=== PATIENT | female | born 1945 | race Caucasian/White ===

== ENCOUNTER 2016-09-05 10:00 | Outpatient (RCR) | payer MEDICARE, OTHER | END 2016-09-06 | disposition home or self-care (01) | LOC: PULM 10:00 | PROVIDERS: ATTEND Internal Medicine Critical Care Medicine | DX: J44.9 Chronic obstructive pulmonary disease, unspecified (principal) ==

== ENCOUNTER 2018-10-21 10:30 | Outpatient (RCR) | payer MEDICARE, OTHER ==
[~2018-10-21] VITALS: Ht 161.3 cm; Wt 63.5 kg
[2018-10-21 10:48] VITALS: BP 120/60
[2018-10-29 15:00] VITALS: BP 120/88
[2018-10-29 16:00] VITALS: BP 120/60
[2018-10-31 15:00] VITALS: BP 102/80
[2018-10-31 16:00] VITALS: BP 116/60
[2018-11-07 14:55] VITALS: BP 150/90
[2018-11-07] MEDS ORDERED: PANT40TA3 (16:09)
[2018-11-07] MEDS ORDERED: PROAIR (16:09)
[2018-11-07] MEDS ORDERED: ATOR10TA66 (16:09)
[2018-11-07] MEDS ORDERED: DICY10CA12 (16:09)
[2018-11-07] MEDS ORDERED: ALPR0.254 (16:09)
[2018-11-07] MEDS ORDERED: BUPR300T51 (16:09)
[2018-11-07] MEDS ORDERED: TRAZ-190 (16:09)
[2018-11-07] MEDS ORDERED: GBPN600T (16:09)
[2018-12-05 15:10] VITALS: BP 130/60
[2018-12-05 16:00] VITALS: BP 110/70
[2019-01-16 14:40] VITALS: BP 128/60
[2019-01-16 15:10] VITALS: BP 115/60
[2019-01-30 14:18] VITALS: BP 108/80
[2019-01-30 15:00] VITALS: BP 115/60
[2019-02-04 14:35] VITALS: BP 108/60
[2019-02-04 15:25] VITALS: BP 112/70
== END 2019-01-19 | disposition home or self-care (01) ==
LOC: PULM 10:30
PROVIDERS: ATTEND Internal Medicine Critical Care Medicine
DX: J44.9 Chronic obstructive pulmonary disease, unspecified (principal)

== ENCOUNTER 2018-11-07 15:23 | Emergency (ER) | payer MEDICARE, OTHER ==
[~2018-11-07] VITALS: Ht 152.4 cm; Wt 61.2 kg
[2018-11-07 15:54] LABS: BASOPHILS # (AUTO) 0.1 10^3/uL (0.0-0.1); BASOPHILS % (AUTO) 0 % (0-10); EOSINOPHILS # (AUTO) 0.1 10^3/uL (0.0-0.3); EOSINOPHILS % (AUTO) 1 % (0-10); HEMATOCRIT 43 % (35-52); HEMOGLOBIN 14.2 G/DL (11.5-16.0); LYMPHOCYTES % (AUTO) 21 % (12-44); MEAN CORPUSCULAR HEMOGLOBIN 29 PG (25-34); MEAN CORPUSCULAR HGB CONC 33 G/DL (32-36); MEAN CORPUSCULAR VOLUME 88 FL (80-99); MEAN PLATELET VOLUME 10.7 FL (7.4-10.4); MONOCYTES # (AUTO) 1.2 X 10^3 (0.0-1.0); MONOCYTES % (AUTO) 9 % (0-12); NEUTROPHILS # (AUTO) 9.6 X 10^3 (1.8-7.8); NEUTROPHILS % (AUTO) 69 % (42-75); PLATELET COUNT 298 10^3/uL (130-400); RED CELL DISTRIBUTION WIDTH 15.2 % (10.0-14.5); WHITE BLOOD COUNT 13.9 10^3/uL (4.3-11.0)
[2018-11-07] MEDS ORDERED: ASPIRIN 81 MG CHEW (CHILDREN'S ASA) PO ONE (16:00)
[2018-11-07 16:06] LABS: ALANINE AMINOTRANSFERASE 17 U/L (0-55); ALBUMIN 4.5 GM/DL (3.2-4.5); ALKALINE PHOSPHATASE 70 U/L (40-136); BILIRUBIN,TOTAL 0.3 MG/DL (0.1-1.0); BUN/CREATININE RATIO 30; CALCIUM 10.9 MG/DL (8.5-10.1); CARBON DIOXIDE 22 MMOL/L (21-32); CHLORIDE 107 MMOL/L (98-107); CREATININE SERUM 1.05 MG/DL (0.60-1.30); GFR ESTIMATED 52; GLUCOSE 105 MG/DL (70-105); MAGNESIUM 1.9 MG/DL (1.8-2.4); POTASSIUM 4.3 MMOL/L (3.6-5.0); SODIUM 142 MMOL/L (135-145); TOTAL PROTEIN 7.5 GM/DL (6.4-8.2)
[2018-11-07] MEDS ORDERED: BUPR300T51 (16:09)
[2018-11-07] MEDS ORDERED: DICY10CA12 (16:09)
[2018-11-07] MEDS ORDERED: ATOR10TA66 (16:09)
[2018-11-07] MEDS ORDERED: PROAIR (16:09)
[2018-11-07] MEDS ORDERED: GBPN600T (16:09)
[2018-11-07] MEDS ORDERED: PANT40TA3 (16:09)
[2018-11-07] MEDS ORDERED: ALPR0.254 (16:09)
[2018-11-07] MEDS ORDERED: TRAZ-190 (16:09)
[2018-11-07 16:14] LABS: INR 0.9 (0.8-1.4); PROTHROMBIN TIME PATIENT 12.2 SEC (12.2-14.7)
--- NOTE | 2018-11-07 16:40 | Diagnostic Imaging Report ---
INDICATION: Chest pain. COMPARISON: None. FINDINGS: Single frontal view of the chest demonstrates normal heart size and pulmonary vascularity. The lungs are well aerated and clear. No large pleural effusion or pneumothorax is seen. The visualized osseous structures show no acute abnormalities. IMPRESSION: 1. No acute cardiopulmonary process. Dictated by: Dictated on workstation # [id number]
--- NOTE | 2018-11-07 16:50 | ED Chest Pain ---
General Chief Complaint: Chest Pain Stated Complaint: CHEST PAIN,HYPERTENSION Nursing Triage Note: TO ED PER W/C FROM PULMONARY REHAB VOICED TO STAFF IN REHAB THAT SHE WAS H AVING CHEST PAIN. C/O CHEST PAIN ON ADMIT ANXIOUS. ON ADMIT. Nursing Sepsis Screen: No Definite Risk Source: patient Exam Limitations: no limitations History of Present Illness Date Seen by Provider: November 07, 2018 Time Seen by Provider: 15:40 Allergies and Home Medications Allergies Coded Allergies: latex (Verified Allergy, Unknown, 11/07/18) morphine (Verified Allergy, Unknown, 11/07/18) Past Xuigcec-Xwnrbp-Mqmgnp Hx Patient Social History Alcohol Use: Denies Use Recreational Drug Use: No Smoking Status: Former Smoker Type Used: Electronic/Vapor Recent Foreign Travel: No Contact w/Someone Who Travel: No Recent Infectious Disease Expo: No Past Medical History Surgeries: Yes Abdominal Respiratory: Yes Asthma, COPD Cardiac: Yes Hypertension Genitourinary: Yes Gastrointestinal: Yes Gastroesophageal Reflux Musculoskeletal: No Endocrine: No Cancer: No Physical Exam Vital Signs Vital Signs - First Documented Capillary Refill : Less Than 3 Seconds Height, Weight, BMI Height: 5'3.50" Weight: 135lbs. 2.0oz. [id number]; 23.7 BMI Method:Stated Progress/Results/Core Measures Results/Orders Lab Results Laboratory Tests Test 11/07/18 15:30 11/07/18 17:35 Range/Units White Blood Count 13.9 H 4.3-11.0 10^3/uL Red Blood Count 4.84 4.35-5.85 10^6/uL Hemoglobin 14.2 11.5-16.0 G/DL Hematocrit 43 35-52 % Mean Corpuscular Volume 88 80-99 FL Mean Corpuscular Hemoglobin 29 25-34 PG Mean Corpuscular Hemoglobin Concent 33 32-36 G/DL Red Cell Distribution Width 15.2 H 10.0-14.5 % Platelet Count 298 130-400 10^3/uL Mean Platelet Volume 10.7 H 7.4-10.4 FL Neutrophils (%) (Auto) 69 42-75 % Lymphocytes (%) (Auto) 21 12-44 % Monocytes (%) (Auto) 9 0-12 % Eosinophils (%) (Auto) 1 0-10 % Basophils (%) (Auto) 0 0-10 % Neutrophils # (Auto) 9.6 H 1.8-7.8 X 10^3 Lymphocytes # (Auto) 3.0 1.0-4.0 X 10^3 Monocytes # (Auto) 1.2 H 0.0-1.0 X 10^3 Eosinophils # (Auto) 0.1 0.0-0.3 10^3/uL Basophils # (Auto) 0.1 0.0-0.1 10^3/uL Prothrombin Time 12.2 12.2-14.7 SEC INR Comment 0.9 0.8-1.4 Activated Partial Thromboplast Time 27 24-35 SEC Sodium Level 142 135-145 MMOL/L Potassium Level 4.3 3.6-5.0 MMOL/L Chloride Level 107 98-107 MMOL/L Carbon Dioxide Level 22 21-32 MMOL/L Anion Gap 13 5-14 MMOL/L Blood Urea Nitrogen 31 H 7-18 MG/DL Creatinine 1.05 0.60-1.30 MG/DL Estimat Glomerular Filtration Rate 52 BUN/Creatinine Ratio 30 Glucose Level 105 70-105 MG/DL Calcium Level 10.9 H 8.5-10.1 MG/DL Corrected Calcium 10.5 H 8.5-10.1 MG/DL Magnesium Level 1.9 1.8-2.4 MG/DL Total Bilirubin 0.3 0.1-1.0 MG/DL Aspartate Amino Transf (AST/SGOT) 18 5-34 U/L Alanine Aminotransferase (ALT/SGPT) 17 0-55 U/L Alkaline Phosphatase 70 40-136 U/L Myoglobin 43.2 10.0-92.0 NG/ML Troponin I < 0.028 < 0.028 <0.028 NG/ML Total Protein 7.5 6.4-8.2 GM/DL Albumin 4.5 3.2-4.5 GM/DL My Orders Orders - BERNOT,RADHA Cbc With Automated Diff (11/07/18 15:46) Magnesium (11/07/18 15:46) Chest 1 View, Ap/Pa Only (11/07/18 15:46) Ekg Tracing (11/07/18 15:46) Cardiac Profile 1 (11/07/18 15:46) Comprehensive Metabolic Panel (11/07/18 15:46) Myoglobin Serum (11/07/18 15:46) Protime With Inr (11/07/18 15:46) Partial Thromboplastin Time (11/07/18 15:46) O2 (11/07/18 15:46) Monitor-Rhythm Ecg Trace Only (11/07/18 15:46) Lipid Panel (11/08/18 06:00) Ed Iv/Invasive Line Start (11/07/18 15:46) Aspirin Chewable Tablet (Baby Aspirin Ch (11/07/18 16:00) Clonidine Tablet (Catapres Tablet) (11/07/18 17:15) Troponin I (11/07/18 17:25) Medications Given in ED Current Medications Medications Dose Ordered Sig/Melissa Route Start Time Stop Time Status Last Admin Dose Admin Aspirin 324 mg ONCE ONCE PO 11/07/18 16:00 11/07/18 16:01 DC 11/07/18 15:59 324 MG Clonidine HCl 0.2 mg ONCE ONCE PO 11/07/18 17:15 11/07/18 17:16 DC 11/07/18 17:14 0.2 MG Vital Signs/I&O 11/07/18 11/07/18 11/07/18 15:26 15:26 17:50 Temp 97.8 Pulse 94 82 Resp 18 18 B/P (MAP) 177/117 (137) 187/99 (128) Pulse Ox 98 98 O2 Delivery Nasal Cannula Nasal Cannula Nasal Cannula O2 Flow Rate 3.00 3.00 3.00 Blood Pressure Mean: 137 Departure Impression Primary Impression: Chest pain Additional Impressions: Labile hypertension Anxiety Disposition: 01 HOME, SELF-CARE Condition: Stable/Unchanged Departure-Patient Inst. Decision time for Depature: 18:32 Referrals: AIDAN KUMAR MD (PCP/Family) Primary Care Physician Patient Instructions: Chest Pain That Is Not Caused by the Heart (DC) Add. Discharge Instructions: Follow-up with your primary care provider within 1 week for recheck. Return back to the emergency room for worsening symptoms or concerns as needed. All discharge instructions reviewed with patient and/or family. Voiced understanding. RADHA ELIAS November 07, 2018 16:50
[2018-11-07] MEDS ORDERED: cloNIDine 0.2 MG PATCH (CATAPRES TTS) TDSY TD ONE (17:00)
[2018-11-07] MEDS ORDERED: cloNIDine 0.2 MG (CATAPRES) TAB PO ONE (17:15)
--- NOTE | 2018-11-07 17:35 | NUR ---
BLOOD DRAWN BY LAB
[2018-11-07 17:50] VITALS: BP 187/99
[2018-11-07 18:38] VITALS: BP 143/89
== END 2018-11-07 18:38 | disposition home or self-care (01) ==
LOC: EDUNIT# 15:23 → ER 15:24
DX: R07.9 Chest pain, unspecified (principal); I10 Essential (primary) hypertension; F41.9 Anxiety disorder, unspecified; J44.9 Chronic obstructive pulmonary disease, unspecified; K21.9 Gastro-esophageal reflux disease without esophagitis; Z91.040 Latex allergy status; Z88.5 Allergy status to narcotic agent; Z87.891 Personal history of nicotine dependence
CPT/HCPCS: 36415; 71045; 80053; 83735; 83874; 84484; 85025; 85610; 85730; 93005; 93041

== ENCOUNTER 2019-01-28 16:00 | Outpatient (RCR) | payer MEDICARE, OTHER ==
[2019-01-28 15:00] VITALS: BP 120/60
[2019-01-28 15:58] VITALS: BP 120/50
[~2019-01-28 16:00] MED LIST: ALPR0.254; ATOR10TA66; BUPR300T51; DICY10CA12; GBPN600T; PANT40TA3; PROAIR; TRAZ-190
[2019-02-13 14:30] VITALS: BP 115/60
[2019-02-13 15:45] VITALS: BP 115/60
[2019-02-20 14:30] VITALS: BP 93/40
[2019-02-20 16:00] VITALS: BP 93/60
[2019-02-25 14:30] VITALS: BP 80/50
[2019-02-25 15:20] VITALS: BP 98/60
[2019-02-27 14:30] VITALS: BP 102/56
[2019-02-27 15:45] VITALS: BP 130/80
[2019-03-04 14:30] VITALS: BP 123/70
[2019-03-04 15:30] VITALS: BP 112/70
[2019-03-11 14:30] VITALS: BP 85/60
[2019-03-11 15:29] VITALS: BP 121/53
[2019-03-13 14:20] VITALS: BP 140/76
[2019-03-13 15:26] VITALS: BP 131/60
[2019-03-18 14:25] VITALS: BP 140/60
[2019-03-18 15:02] VITALS: BP 140/60
[2019-03-20 14:30] VITALS: BP 130/87
[2019-03-20 15:40] VITALS: BP 130/60
[2019-03-25 14:22] VITALS: BP 136/66
[2019-03-25 15:32] VITALS: BP 120/80
[2019-04-08 14:30] VITALS: BP 110/60
[2019-04-08 15:51] VITALS: BP 108/70
[2019-04-10 14:30] VITALS: BP 110/84
[2019-04-10 15:58] VITALS: BP 110/62
--- NOTE | 2019-04-15 16:38 | NUR ---
Patient was scheduled at 1500 for Pulmonary rehab final evaluation. Patient arrived at 1500 and I asked her to sit in the office and wait and I would be with her shortly. Key Geronimo was with me and she was trying to help me with an issue regarding the [employer] system and we were on the computer. At 1515 I went in to perform Anahi's final evaluation and when I entered the office she was angry and started complaining that she had been made to wait and unnecessarily and her wait was unacceptable. I appologized for her wait and explained that I did not know Key would be showing up at that time and had to speak with her. Anahi remained angry and agitated stating she didn't have time to wait, she had places she needed to be. I asked her if she needed to go ahead and leave and she said "no let's just get this done". She was also very upset about having to fill out a psychosocial evaluation that is required for all patients to fill out both pre and post program. It was with some other evaluations that we had sent home for her to fill out rosa to coming in today. She performed the spirometry and 6mw without issue. Her total time spent today was about 30 minutes. She was not acting like herself today but seemed highly agitated and angry.
== END 2019-04-28 | disposition home or self-care (01) ==
LOC: PULM 16:00
PROVIDERS: ATTEND Internal Medicine Critical Care Medicine
DX: J44.9 Chronic obstructive pulmonary disease, unspecified (principal)

== ENCOUNTER 2022-04-05 11:29 | Emergency (ER) | payer MEDICARE, OTHER ==
[~2022-04-05] VITALS: Ht 162 cm; Wt 56.6 kg
[~2022-04-05 11:29] MED LIST changes: +ALPR.25T; -ALPR0.254; -BUPR300T51; +BUPR300T98; -PANT40TA3; +PANT40TA52; -TRAZ-190; +TRAZ-227
[2022-04-05 11:53] LABS: BASOPHILS % (AUTO) 0 % (0-10); EOSINOPHILS % (AUTO) 0 % (0-10); HEMATOCRIT 46 % (35-52); HEMOGLOBIN 15.9 g/dL (11.5-16.0); LYMPHOCYTES # (AUTO) 1.7 10^3/uL (1.0-4.0); LYMPHOCYTES % (AUTO) 14 % (12-44); MEAN CORPUSCULAR HEMOGLOBIN 32 pg (25-34); MEAN CORPUSCULAR HGB CONC 34 g/dL (32-36); MEAN CORPUSCULAR VOLUME 92 fL (80-99); MEAN PLATELET VOLUME 10.5 fL (9.0-12.2); MONOCYTES # (AUTO) 1.1 10^3/uL (0.0-1.0); MONOCYTES % (AUTO) 9 % (0-12); NEUTROPHILS # (AUTO) 8.8 10^3/uL (1.8-7.8); NEUTROPHILS % (AUTO) 75 % (42-75); PLATELET COUNT 293 10^3/uL (130-400); WHITE BLOOD COUNT 11.6 10^3/uL (4.3-11.0)
[2022-04-05 11:56] LABS: SMEAR SCAN COMMENT N
[2022-04-05 11:58] LABS: CLARITY,URINE CLEAR; COLOR,URINE YELLOW; GLUCOSE, URINE (UA) NEGATIVE (NEGATIVE); KETONES,URINE 2+ (NEGATIVE); LEUKOCYTE ESTERASE ,URINE NEGATIVE (NEGATIVE); NITRITE,URINE NEGATIVE (NEGATIVE); PROTEIN,URINE TRACE (NEGATIVE)
[2022-04-05 12:22] LABS: ALBUMIN 4.1 GM/DL (3.2-4.5)
[2022-04-05 12:22] LABS: BILIRUBIN,URINE NEGATIVE (NEGATIVE)
[2022-04-05 12:23] LABS: CALCIUM 9.4 MG/DL (8.5-10.1)
[2022-04-05 12:25] LABS: TOTAL PROTEIN 6.8 GM/DL (6.4-8.2)
[2022-04-05 12:26] LABS: BACTERIA,URINE TRACE /HPF; RBC,URINE RARE /HPF; WBC,URINE RARE /HPF
[2022-04-05 12:26] LABS: BILIRUBIN,TOTAL 0.8 MG/DL (0.1-1.0)
[2022-04-05 12:28] LABS: CREATININE SERUM 0.79 MG/DL (0.60-1.30)
[2022-04-05] MEDS ORDERED: LACTATED RINGERS 1,000 ML IV ONE (14:15)
[2022-04-05] MEDS ORDERED: fentaNYL INJ 100 MCG/2 ML AMP IVP ONE (14:15)
[2022-04-05] MEDS ORDERED: ONDANSETRON 4 MG/2 ML (SDV) Z0FRAN IVP ONE (14:15)
[2022-04-05] MEDS ORDERED: IOHEXOL 350 MG/ML 100 ML (OMNIPAQUE 350) VIAL IV ONE (14:30)
[2022-04-05] MEDS ORDERED: HOLD METFORMIN - RECEIVED CONTRAST 20 ML VIAL IV SCH (14:30)
[2022-04-05] MEDS ORDERED: NS 100 ML (IVPB) BAG IV ONE (14:30)
--- NOTE | 2022-04-05 14:59 | Diagnostic Imaging Report ---
PROCEDURE: CT abdomen and pelvis with contrast. TECHNIQUE: Multiple contiguous axial images were obtained through the abdomen and pelvis after administration of intravenous contrast. Auto Exposure Controls were utilized during the CT exam to meet ALARA standards for radiation dose reduction. All CT scans use one or more of the following dose optimizing techniques: automated exposure control, MA and/or KvP adjustment based on patient size and exam type or iterative reconstruction. INDICATION: Abdominal pain. Vomiting. COMPARISON: None FINDINGS: Included portions of the lung bases are clear. Small hiatal hernia is noted. CT ABDOMEN: Patient is status post previous partial right hemicolectomy. Normal appendix is identified. Small bowel loops are nondistended. Kidneys, adrenal glands, spleen, pancreas, and liver have a normal CT appearance. There is no loculated fluid collection, free fluid or free air within the abdomen. No abnormal mesenteric or retroperitoneal adenopathy is seen. There is advanced diffuse calcified aortic arterial atherosclerosis. Osseous structures show no acute abnormalities. CT PELVIS: Urinary bladder is unopacified. No calculi are seen within urinary bladder. There is no loculated fluid collection, free fluid or free air. No abnormal lymph nodes are seen. Osseous structures show no acute abnormalities. IMPRESSION: 1. No acute abnormalities seen within the abdomen or pelvis. 2. Other nonemergent findings as detailed above. Dictated by: Dictated on workstation # [id number]
[2022-04-05 15:00] LABS: MAGNESIUM 1.8 MG/DL (1.6-2.4)
--- NOTE | 2022-04-05 15:10 | ED Abdominal Pain ---
General Chief Complaint: Abdominal/GI Problems Stated Complaint: WEAKNESS/NAUSEA Nursing Triage Note: pt presents to ed with complaints of abdominal pain, n/v x 1 week, constipation and chills. Source of Information: Patient Exam Limitations: No Limitations History of Present Illness Date Seen by Provider: Apr 05, 2022 Time Seen by Provider: 11:31 Initial Comments This 76-year-old woman presents today with primary complaint of nausea and vomiting with some associated abdominal discomfort. Recent problem started about 10 days ago with a URI. She presented to the ER in [place] where she was prescribed nebulizers and azithromycin. Her cough has since improved. However, she developed abdominal discomfort and vomiting starting yesterday. She has not been able to take her medications. She has not yet been tested for COVID. She additionally reports having a fall over this weekend and injuring her tailbone. This seems to be a reinjury of prior tailbone injury from many years ago. She had been prescribed tramadol and prednisone by another provider for this injury. Allergies and Home Medications Allergies Coded Allergies: erythromycin base (Verified Allergy, Unknown, 04/05/22) latex (Verified Allergy, Unknown, 11/07/18) morphine (Verified Allergy, Unknown, 11/07/18) Patient Home Medication List Home Medication List Reviewed: Yes ALPRAZolam (Xanax Tablet) 0.25 Mg Tablet, (Reported) Entered as Reported by: JUAN CARLOS BUTCHER on 11/07/18 1609 Atorvastatin Calcium (Atorvastatin Calcium) 10 Mg Tablet, (Reported) Entered as Reported by: JUAN CARLOS BUTCHER on 11/07/18 160 Bupropion HCl (Bupropion Xl) 300 Mg Tab.er.24h, (Reported) Entered as Reported by: JUAN CARLOS BUTCHER on 11/07/18 160 Dicyclomine HCl (Dicyclomine HCl) 10 Mg Capsule, (Reported) Entered as Reported by: JUAN CARLOS BUTCHER on 11/07/18 1609 Gabapentin (Gabapentin) 600 Mg Tablet, (Reported) Entered as Reported by: JUAN CARLOS BUTCHER on 11/07/18 160 Ondansetron (Ondansetron Odt) 4 Mg Tab.rapdis, 4 MG SL Q4H PRN for NAUSEA/VOMITING Prescribed by: CRISTELA BYRD on 04/05/22 1620 Pantoprazole Sodium (Pantoprazole Sodium) 40 Mg Tablet., (Reported) Entered as Reported by: JUAN CARLOS BUTCHER on 11/07/18 160 Tramadol HCl (Ultram) 50 Mg Tablet, 50 MG PO Q6H PRN for PAIN-BREAKTHROUGH Prescribed by: CRISTELA BYRD on 04/05/22 1620 Trazodone HCl (Trazodone HCl) 100 Mg Tablet, (Reported) Entered as Reported by: JUAN CARLOS BUTCHER on 11/07/18 160 [Proair] , (Reported) Entered as Reported by: JUAN CARLOS BUTCHER on 11/07/181608 Review of Systems Review of Systems Constitutional: no symptoms reported EENTM: No Symptoms Reported Respiratory: No Symptoms Reported Cardiovascular: No Symptoms Reported Gastrointestinal: See HPI Genitourinary: No Symptoms Reported Musculoskeletal: see HPI Skin: no symptoms reported Psychiatric/Neurological: No Symptoms Reported Endocrine: No Symptoms Reported Past Wairdrd-Drcoot-Wqanvf Hx Patient Social History Tobacco Use?: Yes Tobacco type used: Cigarettes Smoking Status: Current Everyday Smoker Substance use?: No Alcohol Use?: No Pt feels they are or have been: No Immunizations Up To Date First/Initial COVID19 Vaccinat: yes Second COVID19 Vaccination Jacob: yes Past Medical History Surgery/Hospitalization HX: pmh: neuropathy, breast ca, diverticulitis, anxiety, copd, high chol Surgeries: Yes Abdominal (Partial colectomy with colostomy and reversal), Breast (Mastectomy and breast implant removal, teratoma resection), Orthopedic (Neck, tibia f racture) Respiratory: Yes Asthma, COPD Cardiac: Yes High Cholesterol, Hypertension Neurological: Yes Neuropathy Genitourinary: Yes Gastrointestinal: Yes Gastroesophageal Reflux, Diverticulosis Musculoskeletal: No Endocrine: No Cancer: Yes Breast Did You Recieve Any Treatments: Yes What Type of Treatment Did You: Surgical Intervention Physical Exam Vital Signs Vital Signs - First Documented 04/05/22 11:32 Temp 37.2 Pulse 78 Resp 18 B/P (MAP) 149/103 (118) Pulse Ox 97 O2 Delivery Nasal Cannula O2 Flow Rate 2.00 Capillary Refill : Less Than 3 Seconds Height/Weight/BMI Height: 5'3.50" Weight: 144lbs. 2.0oz. 61.511475lv; 21.00 BMI Method:Stated General Appearance: WD/WN, mild distress, thin HEENT: PERRL/EOMI, normal ENT inspection Neck: normal inspection Respiratory: lungs clear, normal breath sounds, no respiratory distress Cardiovascular: regular rate, rhythm, no edema, no murmur Gastrointestinal: normal bowel sounds, soft, tenderness (Minimal, generalized) Extremities: normal inspection, no pedal edema Back: normal inspection, other (Tenderness over the coccyx) Neurologic/Psychiatric: import clerk II-XII nml as tested, no motor/sensory deficits, alert, normal mood/affect, oriented x 3 Skin: normal color, warm/dry Progress/Results/Core Measures Results/Orders Lab Results Laboratory Tests Test 04/05/22 11:35 04/05/22 11:50 04/05/22 12:05 04/05/22 14:22 Range/Units White Blood Count 11.6 H 4.3-11.0 10^3/uL Red Blood Count 5.02 3.80-5.11 10^6/uL Hemoglobin 15.9 11.5-16.0 g/dL Hematocrit 46 35-52 % Mean Corpuscular Volume 92 80-99 fL Mean Corpuscular Hemoglobin 32 25-34 pg Mean Corpuscular Hemoglobin Concent 34 32-36 g/dL Red Cell Distribution Width 12.7 10.0-14.5 % Platelet Count 293 130-400 10^3/uL Mean Platelet Volume 10.5 9.0-12.2 fL Immature Granulocyte % (Auto) 0 % Neutrophils (%) (Auto) 75 42-75 % Lymphocytes (%) (Auto) 14 12-44 % Monocytes (%) (Auto) 9 0-12 % Eosinophils (%) (Auto) 0 0-10 % Basophils (%) (Auto) 0 0-10 % Neutrophils # (Auto) 8.8 H 1.8-7.8 10^3/uL Lymphocytes # (Auto) 1.7 1.0-4.0 10^3/uL Monocytes # (Auto) 1.1 H 0.0-1.0 10^3/uL Eosinophils # (Auto) 0.0 0.0-0.3 10^3/uL Basophils # (Auto) 0.0 0.0-0.1 10^3/uL Immature Granulocyte # (Auto) 0.1 0.0-0.1 10^3/uL Smear Scan N Urine Color YELLOW Urine Clarity CLEAR Urine pH 6.0 5-9 Urine Specific [place] >=1.030 1.016-1.022 Urine Protein TRACE H NEGATIVE Urine Glucose (UA) NEGATIVE NEGATIVE Urine Ketones 2+ H NEGATIVE Urine Nitrite NEGATIVE NEGATIVE Urine Bilirubin NEGATIVE NEGATIVE Urine Urobilinogen 0.2 < = 1.0 MG/DL Urine Leukocyte Esterase NEGATIVE NEGATIVE Urine RBC (Auto) NEGATIVE NEGATIVE Urine RBC RARE /HPF Urine WBC RARE /HPF Urine Squamous Epithelial Cells 5-10 /HPF Urine Crystals NONE /LPF Urine Bacteria TRACE /HPF Urine Casts NONE /LPF Urine Mucus MODERATE H /LPF Urine Culture Indicated NO Sodium Level 141 135-145 MMOL/L Potassium Level 4.0 3.6-5.0 MMOL/L Chloride Level 104 98-107 MMOL/L Carbon Dioxide Level 23 21-32 MMOL/L Anion Gap 14 5-14 MMOL/L Blood Urea Nitrogen 14 7-18 MG/DL Creatinine 0.79 0.60-1.30 MG/DL Estimat Glomerular Filtration Rate 78 BUN/Creatinine Ratio 18 Glucose Level 91 70-105 MG/DL Calcium Level 9.4 8.5-10.1 MG/DL Corrected Calcium 9.3 8.5-10.1 MG/DL Magnesium Level 1.8 1.6-2.4 MG/DL Total Bilirubin 0.8 0.1-1.0 MG/DL Aspartate Amino Transf (AST/SGOT) 19 5-34 U/L Alanine Aminotransferase (ALT/SGPT) 19 0-55 U/L Alkaline Phosphatase 61 40-136 U/L C-Reactive Protein High Sensitivity 0.74 H 0.00-0.50 MG/DL Total Protein 6.8 6.4-8.2 GM/DL Albumin 4.1 3.2-4.5 GM/DL Lipase 11 8-78 U/L Influenza Type A (RT-PCR) Not Detected Not Detecte Influenza Type B (RT-PCR) Not Detected Not Detecte SARS-CoV-2 RNA (RT-PCR) Not Detected Not Detecte My Orders Orders - CRISTELA VALLEJO MD Ed Iv/Invasive Line Start (04/05/22 11:41) Cbc With Automated Diff (04/05/22 11:41) Comprehensive Metabolic Panel (04/05/22 11:41) Lipase (04/05/22 14:08) Magnesium (04/05/22 14:08) Hs C Reactive Protein (04/05/22 14:08) Ondansetron Injection (Zofran Injectio (04/05/22 14:15) Fentanyl Inj (Sublimaze Injection) (04/05/22 14:15) Covid 19 Inhouse Test (04/05/22 14:08) Influenza A And B By Pcr (04/05/22 14:08) Lactated Ringers (Lr 1000 Ml Iv Solution (04/05/22 14:15) Ct Abdomen/Pelvis W (04/05/22 14:08) Iohexol Injection (Omnipaque 350 Mg/Ml 1 (04/05/22 14:30) Received Contrast (Hold Metformin- Contr (04/05/22 14:30) Ns (Ivpb) (Sodium Chloride 0.9% Ivpb Bag (04/05/22 14:30) Tramadol Tablet (Ultram Tablet) (04/05/22 16:15) Acetaminophen Tablet (Tylenol Tablet) (04/05/22 16:15) Medications Given in ED Current Medications Medications Dose Ordered Sig/Melissa Route Start Time Stop Time Status Last Admin Dose Admin Acetaminophen 1,000 mg ONCE ONCE PO 04/05/22 16:15 04/05/22 16:16 DC 04/05/22 16:18 1,000 MG Fentanyl Citrate 25 mcg ONCE ONCE IVP 04/05/22 14:15 04/05/22 14:16 DC 04/05/22 15:00 25 MCG Iohexol 100 ml ONCE ONCE IV 04/05/22 14:30 04/05/22 14:31 DC 04/05/22 14:43 65 ML Lactated Ringer's 1,000 ml @ 0 mls/hr Q0M ONCE IV 04/05/22 14:15 04/05/22 14:16 DC 04/05/22 15:00 1,000 MLS/HR Ondansetron HCl 8 mg ONCE ONCE IVP 04/05/22 14:15 04/05/22 14:16 DC 04/05/22 14:38 8 MG Sodium Chloride 100 ml ONCE ONCE IV 04/05/22 14:30 04/05/22 14:31 DC 04/05/22 14:43 80 ML Tramadol HCl 50 mg ONCE ONCE PO 04/05/22 16:15 04/05/22 16:16 DC 04/05/22 16:17 50 MG Vital Signs/I&O 04/05/22 04/05/22 11:32 16:50 Temp 37.2 Pulse 78 79 Resp 18 18 B/P (MAP) 149/103 (118) 147/96 Pulse Ox 97 97 O2 Delivery Nasal Cannula Room Air O2 Flow Rate 2.00 Blood Pressure Mean: 118 Progress Progress Note : Progress Note Patient was treated with Zofran, fentanyl, and IV fluids. Work-up was grossly unremarkable. Subluxation of the distal coccyx was noted on CT imaging by this provider. This does correlate with where her pain is. I discussed treatment options for the subluxation with Dr. Rivers, orthopedic provider on-call. By his judgment as well as mine, attempts to reduce the subluxation would probably result in significant pain and is not likely to remain reduced or to significantly impact the situation. Discussed options with the patient. She elects to exercise conservative management and not undergo attempt at reduction, especially since she has a remote old injury and is not sure how long this has been subluxed. Diagnostic Imaging Diagonstic Imaging: CT Plain Films/CT/US/NM/MRI: abdomen, pelvis Comments CT abdomen pelvis viewed by me and report reviewed. See report below: NAME: [facility] REC#: [id number] PT STATUS: REG ER : 1945 PHYSICIAN: CRISTELA VALLEJO MD ADMIT DATE: 04/05/22/ER Draft Date of Exam:04/05/22 CT ABDOMEN/PELVIS W PROCEDURE: CT abdomen and pelvis with contrast. TECHNIQUE: Multiple contiguous axial images were obtained through the abdomen and pelvis after administration of intravenous contrast. Auto Exposure Controls were utilized during the CT exam to meet ALARA standards for radiation dose reduction. All CT scans use one or more of the following dose optimizing techniques: automated exposure control, MA and/or KvP adjustment based on patient size and exam type or iterative reconstruction. INDICATION: Abdominal pain. Vomiting. COMPARISON: None FINDINGS: Included portions of the lung bases are clear. Small hiatal hernia is noted. CT ABDOMEN: Patient is status post previous partial right hemicolectomy. Normal appendix is identified. Small bowel loops are nondistended. Kidneys, adrenal glands, spleen, pancreas, and liver have a normal CT appearance. There is no loculated fluid collection, free fluid or free air within the abdomen. No abnormal mesenteric or retroperitoneal adenopathy is seen. There is advanced diffuse calcified aortic arterial atherosclerosis. Osseous structures show no acute abnormalities. CT PELVIS: Urinary bladder is unopacified. No calculi are seen within urinary bladder. There is no loculated fluid collection, free fluid or free air. No abnormal lymph nodes are seen. Osseous structures show no acute abnormalities. IMPRESSION: 1. No acute abnormalities seen within the abdomen or pelvis. 2. Other nonemergent findings as detailed above. Dictated on workstation # [id number] Dict: 04/05/22 1452 Trans: 04/05/22 1458 CV [id number] Interpreted by: ELIAZAR RUANO MD Departure Impression Primary Impression: Generalized abdominal pain Additional Impressions: Nausea & vomiting Qualified Codes: R11.2 - Nausea with vomiting, unspecified Dislocation, coccyx closed Qualified Codes: S33.2XXA - Dislocation of sacroiliac and sacrococcygeal joint, initial encounter Disposition: 01 HOME, SELF-CARE Condition: Improved Departure-Patient Inst. Decision time for Depature: 16:15 Referrals: AIDAN KUMAR MD (PCP/Family) Primary Care Physician Patient Instructions: Abdominal Pain, Adult ED, Coccyx Injury ED, Nausea and Vomiting, Adult Add. Discharge Instructions: Start with a noncarbonated clear liquid diet for the next 24 hours. Gradually advance diet with small quantities of bland food as tolerated. Drink plenty of clear liquids to stay well-hydrated. If you have problems with constipation, try using MiraLAX (polyethylene glycol) per package instructions. For pain start with Tylenol (acetaminophen) up to 1000 mg every 6 hours as needed. Add Ultram (tramadol) as prescribed for further pain control. Please be advised tramadol may cause sleepiness and constipation. You may wish to use a stool softener while on tramadol to prevent constipation. The primary treatment for your coccyx injury is to alleviate pressure. You may use a donut or horseshoe shaped pillow and avoid sitting directly on your tailbone. Sleep on your side to avoid pressure on the tailbone. Use MiraLAX or stool softeners to keep your stools soft to help prevent pressure on the tailbone with bowel movements. Treatment to manually reduce your tailbone dislocation may cause serious pain and is not likely to benefit you long-term. Follow-up with your primary care provider within the next 1 to 2 weeks. Return to the emergency room if you have worsening symptoms. All discharge instructions reviewed with patient and/or family. Voiced understanding. Scripts Tramadol HCl (Ultram) 50 Mg Tablet 50 MG PO Q6H PRN for PAIN-BREAKTHROUGH, #20 TAB Prov: CRISTELA VALLEJO MD 04/05/22 Ondansetron (Ondansetron Odt) 4 Mg Tab.rapdis 4 MG SL Q4H PRN for NAUSEA/VOMITING, #10 TAB Prov: CRISTELA VALLEJO MD 04/05/22 CRISTELA VALLEJO MD Apr 05, 2022 15:10
[2022-04-05] MEDS ORDERED: ACETAMINOPHEN 500 MG TAB (TYLENOL) PO ONE (16:15)
[2022-04-05] MEDS ORDERED: ONDA4TAB11 SL (16:20)
[2022-04-05] MEDS ORDERED: TRAM-42 PO (16:20)
[2022-04-05 16:50] VITALS: BP 147/96
== END 2022-04-05 16:50 | disposition home or self-care (01) ==
LOC: EDUNIT# 11:29 → ER 11:30
DX: S33.2XXA Dislocation of sacroiliac and sacrococcygeal joint, initial encounter (principal); R11.2 Nausea with vomiting, unspecified; R10.84 Generalized abdominal pain; F17.210 Nicotine dependence, cigarettes, uncomplicated; Z90.49 Acquired absence of other specified parts of digestive tract; Z91.040 Latex allergy status; Z20.822 Contact with and (suspected) exposure to COVID-19; W19.XXXA Unspecified fall, initial encounter
CPT/HCPCS: 36415; 74177; 80053; 81000; 83690; 83735; 85025; 86141; 87636